=== PATIENT | male | born 1960 | race Caucasian/White ===

== ENCOUNTER → 2017-08-20 | Emergency (ER) | payer OTHER ==
[~2017-08-20] VITALS: Ht 172.7 cm; Wt 72.6 kg
[~2017-08-20] MED LIST: MICARDIS HCT 41 EACH; NEXIUM5 MG; RELPAX20 MG; ZANTAC150 M3
== END | disposition home or self-care (01) ==
LOC: ER 09:17
DX: G44.001 Cluster headache syndrome, unspecified, intractable (principal)

== ENCOUNTER → 2018-03-02 | Emergency (ER) | payer OTHER ==
[~2018-03-02] VITALS: Ht 172.7 cm; Wt 74.8 kg
[~2018-03-02] MED LIST changes: +ATORVASTATIN CA10 MG PO; +CALAN80 MG PO; +PROTONIX20 MG PO; +ZANTAC300 MG PO
== END | disposition left against medical advice (07) ==
LOC: ER 12:50
DX: Z53.20 Procedure and treatment not carried out because of patient's decision for unspecified reasons (principal)

== ENCOUNTER 2019-07-31 06:00 | Emergency (ER) | payer OTHER ==
[~2019-07-31] VITALS: Ht 172.7 cm; Wt 78.0 kg
[2019-07-31] MEDS ORDERED: HYDROCHLOROTHIAZIDE (06:43)
[2019-07-31] MEDS ORDERED: PANTOPRAZOLE (06:44)
[2019-07-31] MEDS ORDERED: CLONAZEPAM (06:45)
[2019-07-31] MEDS ORDERED: CITALOPRAM20 MG/10 M (06:46)
[2019-07-31] MEDS ORDERED: GRALISE600 MG (06:47)
[2019-07-31] MEDS ORDERED: PROVIGIL100 MG (06:47)
[2019-07-31] MEDS ORDERED: MIRTAZAPINE7.5 MG (06:48)
[2019-07-31] MEDS ORDERED: RESTORIL30 M1 (06:49)
[2019-07-31] MEDS ORDERED: RELPAX (06:50)
[2019-07-31] MEDS ORDERED: FLECTOR1 EACH TOP (12:35)
== END 2019-07-31 12:40 | disposition home or self-care (01) ==
LOC: ER 06:00
DX: K57.30 Diverticulosis of large intestine without perforation or abscess without bleeding (principal); R10.31 Right lower quadrant pain

== ENCOUNTER 2022-03-06 15:00 | Emergency (ER) | payer OTHER ==
[~2022-03-06] VITALS: Ht 172.7 cm; Wt 76.7 kg
[~2022-03-06 15:00] MED LIST changes: +ACETAMINOPHEN-1 EAC2 PO; +CITALOPRAM20 MG/10 M; +CLONAZEPAM; +FLECTOR1 EACH TOP; +GABAPENTIN600 MG PO; +GRALISE600 MG; +HYDROCHLOROTHIAZIDE; +MIRTAZAPINE7.5 MG; +PANTOPRAZOLE; +PROVIGIL100 MG; +RELPAX; +RESTORIL30 M1
[2022-03-06] MEDS ORDERED: TYLENOL (16:03)
[2022-03-06] MEDS ORDERED: BENADRYL (16:04)
== END 2022-03-07 00:26 | disposition home or self-care (01) ==
LOC: ER 15:00
DX: T78.40XA Allergy, unspecified, initial encounter (principal); R21 Rash and other nonspecific skin eruption; Z20.822 Contact with and (suspected) exposure to COVID-19